=== PATIENT | female | born 1980 | race Caucasian/White ===

== ENCOUNTER 2017-04-13 20:19 | Emergency (ER) | payer BC ==
[~2017-04-13] VITALS: Ht 170.2 cm; Wt 69.5 kg
[2017-04-13 20:58] VITALS: BP 132/91
== END 2017-04-13 22:25 | disposition home or self-care (01) ==
LOC: RME 20:19 → EME 20:19 → RME 22:25
DX: J06.9 Acute upper respiratory infection, unspecified (principal); F41.9 Anxiety disorder, unspecified; F17.200 Nicotine dependence, unspecified, uncomplicated
CPT/HCPCS: 99281; 99283